=== PATIENT | male | born 1975 | race Caucasian/White ===

== ENCOUNTER 2021-11-20 15:04 | Emergency (ER) | payer MEDICAID ==
[~2021-11-20] VITALS: Ht 172.7 cm; Wt 81.6 kg
[2021-11-20] MEDS ORDERED: IBUPROFEN 600 MG TAB PO ONE (16:10)
[2021-11-20 16:23] VITALS: BP 160/95
--- NOTE | 2021-11-20 16:50 | NUR ---
PT'S MIDDLE (3RD DIGIT) FINGER WAS WRAPPED IN A SPLINT. A METAL SHORT FINGER SPLINT WAS USED TO IMMOBILIZE THE FINGER AND IT WAS WRAPPED IN A 2 INCH SAJI WRAP TO SECURE THE SPLINT. + CMS BEFORE/AFTER. PT DID NOT COMPLAIN OF PAIN OR DISCOMFORT A RESULT OF THE SPLINT OR INTERVENTION PERFORMED.
--- NOTE | 2021-11-20 17:00 | NUR ---
NO NURSING CARE RENDERED, PT DISCHARGED BY [facility]
== END 2021-11-20 17:05 | disposition home or self-care (01) ==
LOC: MED 15:04
DX: S62.642A Nondisplaced fracture of proximal phalanx of right middle finger, initial encounter for closed fracture (principal); W22.8XXA Striking against or struck by other objects, initial encounter; Y92.89 Other specified places as the place of occurrence of the external cause; Y93.89 Activity, other specified; Y99.8 Other external cause status
CPT/HCPCS: 73140; 99283